=== PATIENT | female | born 1945 | race Asian ===

== ENCOUNTER 2021-04-08 12:21 | Outpatient (CLI) | payer OTHER | END 2021-04-08 19:20 | disposition home or self-care (01) | LOC: RAD 12:21 | PROVIDERS: ATTEND Physician Assistant Medical | DX: M54.16 Radiculopathy, lumbar region (principal); M47.812 Spondylosis without myelopathy or radiculopathy, cervical region ==

== ENCOUNTER 2021-04-21 13:12 | Outpatient (CLI) | payer OTHER | END 2021-04-21 18:55 | disposition home or self-care (01) | LOC: MRI 13:12 | PROVIDERS: ATTEND Physician Assistant Medical | DX: M54.16 Radiculopathy, lumbar region (principal) ==